=== PATIENT | female | born 1940 | race Caucasian/White ===

== ENCOUNTER 2020-02-04 14:17 | Outpatient (CLI) | payer OTHER ==
[~2020-02-04 14:17] MED LIST: CALCIONATE115 MG/5 M; MIRALAX17 GM PO; NORVASC5 MG; SYNTHROID75 MCG
== END 2020-02-04 15:20 | disposition home or self-care (01) ==
LOC: OFIC 805 14:17
PROVIDERS: ATTEND Otolaryngology Otology & Neurotology
DX: H69.82 Other specified disorders of Eustachian tube, left ear (principal); H65.22 Chronic serous otitis media, left ear; H90.A12 Conductive hearing loss, unilateral, left ear with restricted hearing on the contralateral side

== ENCOUNTER 2020-05-03 11:35 | Outpatient (CLI) | payer OTHER | END 2020-05-03 11:56 | disposition home or self-care (01) | LOC: OFIC 805 11:35 | PROVIDERS: ATTEND Otolaryngology Otology & Neurotology | DX: H91.13 Presbycusis, bilateral (principal) ==

== ENCOUNTER 2021-10-01 18:18 | Emergency (ER) | payer OTHER ==
[~2021-10-01] VITALS: Ht 157.5 cm; Wt 47.6 kg
[2021-10-01] MEDS ORDERED: CALAN SR120 MG (19:19)
[2021-10-01] MEDS ORDERED: CIPRO500 MG PO (22:01)
== END 2021-10-01 22:36 | disposition home or self-care (01) ==
LOC: ER 18:18
DX: N39.0 Urinary tract infection, site not specified (principal); I10 Essential (primary) hypertension; E03.9 Hypothyroidism, unspecified; J45.909 Unspecified asthma, uncomplicated

== ENCOUNTER 2021-12-21 12:00 | Emergency (ER) | payer OTHER ==
[~2021-12-21] VITALS: Ht 152.4 cm; Wt 49.9 kg
[~2021-12-21 12:00] MED LIST changes: +CALAN SR120 MG; +CIPRO500 MG PO
[2021-12-21] MEDS ORDERED: GALANTAMINE HBR8 MG PO (13:48)
== END 2021-12-21 14:50 | disposition home or self-care (01) ==
LOC: ER 12:00
DX: R55 Syncope and collapse (principal); I10 Essential (primary) hypertension

== ENCOUNTER → 2022-08-19 | Emergency (ER) | payer OTHER ==
[~2022-08-19] VITALS: Ht 160 cm; Wt 54.4 kg
[~2022-08-19] MED LIST changes: +BUSPIRONE HCL5 MG PO; +GALANTAMINE HBR8 MG PO; +METHOTREXATE2.5 MG PO; +NABUMETONE750 MG PO; +RIVASTIGMINE1 EAC2 TD; +ROSUVASTATIN CAL5 MG PO; +TRAZODONE HCL50 MG PO
== END | disposition home or self-care (01) ==
LOC: ER 12:25
DX: R63.0 Anorexia (principal); F32.89 Other specified depressive episodes

== ENCOUNTER 2024-03-28 06:54 | Emergency (ER) | payer OTHER ==
[~2024-03-28] VITALS: Ht 157.5 cm; Wt 68.0 kg
[2024-03-28 07:33] VITALS: BP 126/69; O2SAT 98
[2024-03-28] MEDS ORDERED: ADULT LOW DOSE81 M1 (07:35)
[2024-03-28] MEDS ORDERED: NAMENDA XR7 MG (07:35)
[2024-03-28] MEDS ORDERED: EZALLOR SPRINKLE5 MG (07:35)
[2024-03-28] MEDS ORDERED: 0.9 % SODIUM CHLORIDE 1,000 ML IV STA (08:49)
[2024-03-28] MEDS ORDERED: LEVALBUTEROL HCL 1.25 MG/3 ML SOLUTION IH STA (08:49)
[2024-03-28] MEDS ORDERED: BUDESONIDE 0.5 MG/2 ML AMPUL.NEB IH STA (08:50)
[2024-03-28 09:31] LABS: HEMATOCRIT 39.6 % (36.0-45.00); HEMOGLOBIN 13.2 g/dL (12.0-15.00); MEAN CELL VOLUME 90.6 fL (80.00-100.00); MEAN CORPUSCULAR HEMOGLOBIN 30.3 pg (27.00-32.0); MEAN CORPUSCULAR HGB CONC 33.4 g/dl (32.0-36.0); PLATELET COUNT 320 K/uL (150-450); RED BLOOD COUNT 4.37 M/uL (4.00-6.00)
[2024-03-28 10:05] LABS: ALBUMIN 3.8 gm/dL (3.4-5.0); BILIRUBIN TOTAL 0.75 mg/dL (0.3-1.2); BILIRUBIN,CONJUGATED 0.23 mg/dL (0.0-0.2); BILIRUBIN,UNCONJUGATED 0.52 mg/dL (0.0-0.6); CALCIUM 9.2 mg/dL (8.5-10.1); CREATININE SERUM 0.76 mg/dL (0.55-1.02); GFR 73.04; POTASSIUM 3.59 mEq/L (3.5-5.1); TOTAL PROTEIN 8.9 gm/dL (6.4-8.2)
[2024-03-28 10:21] LABS: URINE APPEARANCE Cloudy; URINE BILIRRUBIN Negative (NEGATIVE); URINE COLOR Yellow; URINE EPITHELIAL CELLS 19.6 uL (0.0-38.8); URINE GLUCOSE Negative (NEGATIVE); URINE KETONE Trace (NEGATIVE); URINE LEUKOCYTE Trace; URINE NITRATE Negative; URINE PROTEIN Trace (NEGATIVE); URINE RBC 90.7 uL (0.0-20.8); URINE UROBILINOGEN 0.2 E.U./dl; URINE WBC 15.9 uL (0.0-23.2)
[2024-03-28 10:27] LABS: URINE CAST 0.29 uL (0.0-1.40)
[2024-03-28 10:28] LABS: URINE BLOOD TRACES
[2024-03-28] MEDS ORDERED: BUDESONIDE 0.5 MG/2 ML AMPUL.NEB IH ONE (10:47)
[2024-03-28] MEDS ORDERED: LEVALBUTEROL HCL 1.25 MG/3 ML SOLUTION IH ONE (10:47)
[2024-03-28] MEDS ORDERED: LORazepam 2 MG/ML VIAL IM STA (12:32)
[2024-03-28] MEDS ORDERED: LORazepam 2 MG/ML DISP.SYRIN ONE (13:29)
[2024-03-28 15:28] LABS: ABG PH 7.468 (7.35-7.45); ABG PO2 67.5 mmHg (80-100); ABG pCO2 30.2 mmHg (35-45)
[2024-03-28 15:29] LABS: BASE EXCESS -1.1 mmol/l; BICARBONATE 21.4 mmol/l (23-25); SaO2 94.4 %; Tco2 22.3 mmol/l; o2 21 %
[2024-03-28 15:30] LABS: allen test SATISFACTORY; puncture site RADIAL LEFT
== END 2024-03-28 13:41 | disposition home or self-care (01) ==
LOC: ER 06:56
PROVIDERS: General Practice
DX: R05.8 Other specified cough (principal); G30.8 Other Alzheimer's disease; F02.80 Dementia in other diseases classified elsewhere, unspecified severity, without behavioral disturbance, psychotic disturbance, mood disturbance, and anxiety; F32.89 Other specified depressive episodes
CPT/HCPCS: 36415; 71250; 74176; 82803; 94640; 96365; 96366; 96372; 99284; J3490; J7030

== ENCOUNTER 2024-11-08 20:51 | Emergency (ER) | payer OTHER ==
[~2024-11-08] VITALS: Ht 152.4 cm; Wt 68.0 kg
[~2024-11-08 20:51] MED LIST changes: +ADULT LOW DOSE81 M1; +EZALLOR SPRINKLE5 MG; +NAMENDA XR7 MG
[2024-11-08 21:13] VITALS: BP 118/64; O2SAT 99
[2024-11-08] MEDS ORDERED: YUPELRI175 MCG/3 IH (21:15)
[2024-11-08] MEDS ORDERED: SERTRALINE HCL100 MG PO (21:15)
[2024-11-08] MEDS ORDERED: MIRTAZAPINE15 MG PO (21:15)
[2024-11-08] MEDS ORDERED: BUSPIRONE HCL15 MG PO (21:15)
[2024-11-08] MEDS ORDERED: RIVASTIGMINE1 EACH TD (21:15)
[2024-11-08] MEDS ORDERED: IBANDRONATE SO150 MG PO (21:15)
[2024-11-08] MEDS ORDERED: GABAPENTIN100 M2 PO (21:16)
[2024-11-08] MEDS ORDERED: OMEPRAZOLE20 MG PO (21:16)
[2024-11-08] MEDS ORDERED: 0.9 % SODIUM CHLORIDE 1,000 ML IV SCH (21:30)
[2024-11-08 22:04] LABS: BASO % 0.3 % (0.1-1.2); EOS # 0.22 (0.04-0.54); EOS % 3.4 % (0.7-7.0); LYMPH # 1.15 (1.18-3.74); LYMPH % 18.0 % (19.3-53.1); MEAN PLATELET VOLUME 9.80 fl (9.4-12.4); MONO # 0.91 (0.24-0.82); NEUT # 4.05 (1.56-6.13); NEUT % 63.5 % (34.0-71.1); RED CELL DISTRIBUTION WIDTH 16.3 % (11.6-14.4)
[2024-11-08 22:08] LABS: MONO % 14.2 % (4.7-12.5)
[2024-11-08 22:34] LABS: ALT/SGPT 15.0 U/L (12-78); AST/SGOT 17.0 U/L (15-37); BILIRUBIN TOTAL 0.44 mg/dL (0.3-1.2); BUN CREA RATIO 12.0 (7.0-25.0); CREATININE SERUM 1.0 mg/dL (0.55-1.02); GFR 53.08; GLOBULINA 3.7 G/DL (2.4-3.5); GLUCOSE FASTING 96.0 mg/dL (65-100); OSMOLALITY SERUM 275.0 MOSM/KG (275-295)
[2024-11-08 23:22] LABS: URINE APPEARANCE Clear; URINE BILIRRUBIN Negative (NEGATIVE); URINE BLOOD Negative; URINE COLOR Dark Yellow; URINE GLUCOSE Negative (NEGATIVE); URINE KETONE Negative (NEGATIVE); URINE LEUKOCYTE Trace; URINE NITRATE Negative; URINE PROTEIN Negative (NEGATIVE); URINE UROBILINOGEN 0.2 E.U./dl
[2024-11-08 23:25] LABS: URINE BACTERIA 82.7 uL (0.0-1933); URINE EPITHELIAL CELLS 2.4 uL (0.0-38.8); URINE RBC 8.5 uL (0.0-20.8); URINE WBC 11.9 uL (0.0-23.2)
[2024-11-08 23:37] LABS: URINE CAST 0.58 uL (0.0-1.40)
[2024-11-08 23:38] LABS: COVID-19 AG NEGATIVE (NEGATIVE)
== END 2024-11-09 00:10 | disposition home or self-care (01) ==
LOC: ER 20:51
PROVIDERS: General Practice
DX: R50.9 Fever, unspecified (principal); Z20.822 Contact with and (suspected) exposure to COVID-19; I10 Essential (primary) hypertension
CPT/HCPCS: 36415; 51702; 71045; 96365; 96366; 99283; J7030